=== PATIENT | male | born 1990 | race Caucasian/White ===

== ENCOUNTER 2016-12-19 09:28 | Emergency (ER) | payer SELFPAY ==
--- NOTE | 2017-01-17 07:42 | ER ---
ADMIT: 12/19/2016 RM/LOC: ER [facility] MR#: [id number] [id number] [address] [place] [address] Emergency Room Report SEX: M AGE: 26 : 1990 DATE: 12/19/2016 ADDENDUM: HISTORY OF PRESENT ILLNESS: This patient comes to the ER because he is having drooping on the left side of his face, it has been for the last 2 days. He denies any pain or headaches. He mostly notices that his eye will not blink. PHYSICAL EXAMINATION: GENERAL: This is an alert 26-year-old, male. VITAL SIGNS: Temperature is 96.1, pulse 77, respirations 20, blood pressure 142/94, pulse ox 100% on room air. EYES: EOMI, PERRLA. 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 EXTREMITIES: His strength is equal bilaterally in both the upper and lower extremities. NEUROLOGIC: He answers questions and speaks appropriately. DIAGNOSIS: Landrum's palsy. PLAN: I did explain to the patient that he had Landrum's palsy and what this meant. He was given a prednisone 40 mg p.o. we did talk a lot about his eye and how to care for it. He used to use a heavy moisture drop 1-2 hours while awake, and then at night, he should use Lacri-Lube in his eye and tape his eye shut. If he is not better in a week, he needs to follow up with Dr. Hernandez. Please see my T-sheet. PAOLA Lim / Kehinde Rutledge MD / jerardo JOB #: [id number] CC: Kehinde Rutledge MD, Attending Physician Jose Luis Hernandez MD, Family Physician
== END 2016-12-19 10:55 | disposition home or self-care (01) ==
LOC: ER 09:28
DX: G51.0 Bell's palsy (principal)